=== PATIENT | male | born 1985 | race Two or more races ===

== ENCOUNTER 2020-02-16 14:53 | Inpatient (IN) | payer BC ==
[~2020-02-16] VITALS: Ht 165.1 cm; Wt 68.0 kg
[2020-02-16] MEDS: IV NORMAL SALINE 1000ML BAG 1,000 ML IV SCH (16:03)
--- NOTE | 2020-02-16 16:05 | PDOC2 ---
GI CONSULT Date of Service: DATE: 02/16/20 TIME: 15:54 Reason For Consult: anemia, diarrhea HPI: HPI: 34 y/o male directly admitted by Dr. Barrios. I discussed with him - pt was seen in the office yesterday for diarrhea and abdominal pain and was started on Cipro and Flagyl. Labs were checked - results today noted Hgb in 7s. Hgb was normal last year. The patient does not speak Malay but Consuelo is present to translate. Has h/o acid reflux for at least a year - sometimes more bothersome than other times - untreated except for eating limes. Reports acute onset of worsening reflux, nausea, epigastric and BLQ pain after eating and w/ movement, and diarrhea (brown watery stools 3 x daily w/ small amounts of red blood). Denies precipitating events except for lifting something heavy. Has lost 10 pounds unintentionally in 1 month. Denies fever, chest pain, SOA, dysphagia, vomiting, and melena. No issues w/ anemia, diarrhea, or abdominal pain in the past. No previous EGD or colonoscopy. No GB, liver, pancreas, or PUD history. No NSAIDs. PMH: PMH: denies FH: Family History: No pertinent hx (denies IBD, GI cancers, and ulcers) Social History: ALCOHOL: occassional (15 beers weekly) ROS: GEN: +fatigue HEENT: Denies blurred vision, sore throat CV: Denies chest pain RESP: Denies shortness of air, cough GI: Per HPI : Denies hematuria, dysuria ENDO: +weight loss NEURO: Denies confusion, dizziness MSK: Denies weakness, joint pain/swelling SKIN: Denies jaundice, pruritus Allergies: Coded Allergies: No Known Drug Allergies (Unverified , 02/16/20) PE: GEN: NAD HEENT: Atraumatic, PERRL LUNGS: CTAB HEART: RRR ABD: NABS, S/ND, epigastric discomfort, BLQ discomfort - mostly LLQ EXTREMITY: No edema SKIN: No rashes, no jaundice NEURO/PSYCH: A & O 3 A/P: A/P: Acid reflux, nausea, weight loss, abd pain, diarrhea - onset 8 days ago Anemia - new; noted on outpt labs CRC screen - average risk -- Await labs and CT as ordered by Dr. Barrios. 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 Check anemia parameters and stool studies. Has IV atbx ordered - will review w/ Dr. Boucher. Consider 'scopes later this week - pt agreeable - will review w/ Dr. Boucher. ?STEPHANIE Morrow Feb 16, 2020 16:05
[2020-02-16 16:24] LABS: BASO # 0.2 x10^3/uL (0.0-0.2); BASO % 1 % (0-3); EOS # 1.5 x10^3/uL (0.0-0.7); EOS % 10 % (0-3); HEMATOCRIT 23.2 % (39.0-53.0); HEMOGLOBIN 7.2 g/dL (13.0-17.5); LYMPH # 1.4 x10^3/uL (1.0-4.8); LYMPH % 10 % (24-48); MEAN CORPUSCULAR HEMOGLOBIN 21 pg (25-35); MEAN CORPUSCULAR HGB CONC 31 g/dL (31-37); MEAN CORPUSCULAR VOLUME 66 fL (79-100); MONO # 1.9 x10^3/uL (0.0-1.1); MONO % 13 % (0-9); NEUT # 9.6 x10^3/uL (1.8-7.7); NEUT % 66 % (31-73); PLATELET COUNT 564 x10^3/uL (140-400); RED CELL DISTRIBUTION WIDTH 18.3 % (11.5-14.5); WHITE BLOOD COUNT 14.6 x10^3/uL (4.0-11.0)
[2020-02-16 16:52] LABS: % BANDS 5 % (0-9); % BASOS 1 % (0-3); % EOS 11 % (0-5); % LYMPHS 7 % (24-48); % MONOS 13 % (0-10); % SEGS 63 % (35-66); HYPOCHROMIA MARKED; NUCLEATED RBC 1; PLT ESTIMATE INCREASED (ADEQUATE); POLYCHROMASIA OCCASIONAL
[2020-02-16 16:53] LABS: ANISOCYTOSIS SLIGHT; MICROCYTOSIS MARKED
[2020-02-16 16:54] LABS: OVALOCYTES OCC; SCHISTOCYTES OCC; TEAR DROP CELLS FEW
[2020-02-16 16:55] LABS: POIKILOCYTOSIS SLIGHT
[2020-02-16 17:01] LABS: ALBUMIN 2.9 g/dL (3.4-5.0); ALBUMIN/GLOBULIN RATIO 0.7 (1.0-1.7); CALCIUM 8.5 mg/dL (8.5-10.1); CREATININE 1.2 mg/dL (0.7-1.3); GFR 69.7; POTASSIUM 3.3 mmol/L (3.5-5.1); TOTAL BILIRUBIN 0.3 mg/dL (0.2-1.0); TOTAL PROTEIN 7.1 g/dL (6.4-8.2)
[2020-02-16] MEDS: PANTOPRAZOLE IV PUSH 40 MG VIAL. IVP SCH (17:23)
[2020-02-16] MEDS ORDERED: POTASSIUM CHLORIDE 20 MEQ TABLET.ER. PO ONE (17:30)
--- NOTE | 2020-02-16 17:34 | PDOC ---
Provider Note Date of Service: DATE: 02/16/20 TIME: 17:33 Provider Note Pt seen.H&P dictated.#[id number]. Justifications for Admission Other Justification FADI BOWEN MD Feb 16, 2020 17:34
--- NOTE | 2020-02-16 17:44 | HP ---
ADMIT DATE: 02/16/2020 MEDICAL HISTORY AND PHYSICAL REASON FOR ADMISSION TO THE HOSPITAL: Anemia, abdominal pain and elevated white count, possible infection. HISTORY OF PRESENT ILLNESS: This is a 34-year-old male. The patient was seen yesterday in the office, was complaining of abdominal pain and diarrhea. Had laboratory data drawn, which shows hemoglobin 7.6. His last hemoglobin last year was normal at 14. White count was elevated to 16 and because of severe anemia and abdominal pain, elevated white count, the patient was admitted to the hospital for IV antibiotics and GI workup including CT scan and colonoscopies. PAST MEDICAL HISTORY: Denies any medical problems. He says he has been having abdominal pain, diarrhea, loss weight in 1 month. FAMILY HISTORY: Unremarkable. SOCIAL HISTORY: Occasional alcohol. Beers, 15 beers weekly. MEDICAL HISTORY: None. SURGICAL HISTORY: None. REVIEW OF SYMPTOMS: Feels tired, fatigued and weight loss. Has some blood in the stool once in a while, but not all the time. PHYSICAL EXAMINATION: VITAL SIGNS: Temperature 99, pulse 80, respirations 20, blood pressure 110/70. HEENT: Head is atraumatic. Pupils equal. Oral cavity: No congestion. NECK: Supple. Thyroid not enlarged. JVD not elevated. CHEST: Symmetrical. CARDIOVASCULAR: S1, S2. LUNGS: Clear. ABDOMEN: Tender left lower quadrant to deep palpation. Bowel sounds were present, no mass palpable. EXTERNAL GENITALIA: No Quesada. RECTAL: Deferred. EXTREMITIES: No calf tenderness, no edema. NEUROLOGIC: Moving all extremities. No focal deficits noted. LABORATORY DATA: Shows hemoglobin 7.6, white count 16 in the office. Platelets were normal. CMP was normal. FINAL IMPRESSION: 1. Severe anemia. 2. Abdominal pain with diarrhea, possible colitis. 3. Elevated white count related to possible colitis. PLAN: At this time, he was admitted to the hospital. GI consult. CT scan. Stool cultures. Started on Cipro and Flagyl. Type and cross, transfuse hemoglobin less than 7. FADI BOWEN MD DR: VENECIA/thai JOB#: [id number] / [id number]
[2020-02-16 19:00] VITALS: BP 100/64
[2020-02-16] MEDS ORDERED: IOHEXOL 300 MG/ML 100ML VIAL. IV ONE (19:00)
[2020-02-16] MEDS ORDERED: CONTRAST GIVEN. MC PRN (19:00)
[2020-02-16] MEDS ORDERED: IOHEXOL 240 MG/ML 50ML VIAL. PO ONE (19:00)
--- NOTE | 2020-02-16 21:02 | RAD ---
CT abdomen and pelvis with contrast: Reason for examination: Abdominal pain and anemia. Helical images were obtained through the abdomen and pelvis with intravenous administration of 75 cc Omni 300. Reconstruction was performed in sagittal and coronal planes. Exposure: One or more of the following individualized dose reduction techniques were utilized for this examination: 1. Automated exposure control 2. Adjustment of the mA and/or kV according to patient size 3. Use of iterative reconstruction technique. The lung bases are clear. The heart size is normal with no pericardial effusion. No abnormality seen at the liver, spleen, adrenal glands, gallbladder or pancreas. The abdominal aorta and inferior vena cava show no acute abnormalities. No abnormality seen at the stomach or duodenum. The small intestinal tract shows no abnormal wall thickening, dilatation or obstruction. No abnormality seen at the appendix. The ascending colon and proximal transverse colon however shows wall thickening and some adjacent inflammatory changes are seen around the ascending colon consistent with colitis. The kidneys show no renal masses, renal calculi, hydronephrosis or evidence of obstructive uropathy. There are multiple small nodules consistent with retroperitoneal or mesenteric lymphadenopathy. No abnormality seen at the bladder, prostate gland or seminal vesicles. No free fluid or free air is seen in the abdomen or pelvis. IMPRESSION: Thickened wall with adjacent inflammatory changes involving the ascending and proximal transverse colon consistent with colitis. Multiple small nodules in the retroperitoneal anteriorly consistent with adenopathy. Electronically signed by: Sienna Mckeon MD (02/16/2020 8:59 PM) [facility]
[2020-02-16] MEDS: CIPROFLOXACIN 400MG PREMIX 200 ML IV SCH (21:58)
[2020-02-16 23:44] VITALS: BP 104/60
[2020-02-17] VITALS (14 sets, daily range): BP systolic 100–117; BP diastolic 46–70
[2020-02-17] MEDS: IV NORMAL SALINE 1000ML BAG 1,000 ML IV SCH ×3 (01:19→22:12)
[2020-02-17 07:50] LABS: CALCIUM 7.9 mg/dL (8.5-10.1); CREATININE 1.4 mg/dL (0.7-1.3); GFR 58.4; POTASSIUM 3.6 mmol/L (3.5-5.1)
[2020-02-17 07:57] LABS: BASO # 0.1 x10^3/uL (0.0-0.2); BASO % 0 % (0-3); EOS % 6 % (0-3); HEMATOCRIT 22.1 % (39.0-53.0); LYMPH # 1.2 x10^3/uL (1.0-4.8); LYMPH % 8 % (24-48); MEAN CORPUSCULAR HEMOGLOBIN 20 pg (25-35); MEAN CORPUSCULAR HGB CONC 30 g/dL (31-37); MEAN CORPUSCULAR VOLUME 67 fL (79-100); MONO % 13 % (0-9); NEUT # 11.1 x10^3/uL (1.8-7.7); NEUT % 72 % (31-73); PLATELET COUNT 565 x10^3/uL (140-400); RED BLOOD COUNT 3.31 x10^6/uL (4.30-5.70); RED CELL DISTRIBUTION WIDTH 18.2 % (11.5-14.5); WHITE BLOOD COUNT 15.3 x10^3/uL (4.0-11.0)
--- NOTE | 2020-02-17 08:53 | RAD ---
CT chest without contrast PQRS statement: CT scans at this facility use dose reduction including either automated exposure cont rol, iterative reconstructions, and /or weight based radiation dosing via mA and kV modification when appropriate to reduce radiation dose to as low as reasonably achievable. HISTORY: Anemia. FINDINGS: Heart size is normal. Aorta, pulmonary vessels and esophagus are unremarkable. No adenopath y in the chest. Wall thickening and edema of the transverse colon at the upper abdomen as present on the prior CT abdomen study from one day ago. Trachea and bronchi are unremarkable. There is mild symm etric dependent lower lobe subpleural reticulation and linear densities typical of atelectasis. No pl eural effusions. No pulmonary edema. Bones are unremarkable. IMPRESSION: No acute process in the chest. Minimal dependent lower lobe atelectasis. Colitis again de monstrated Electronically signed by: Mayur Quesada MD (02/17/2020 8:50 AM) [facility]
[2020-02-17 08:54] LABS: HEMOGLOBIN 6.7 g/dL (13.0-17.5)
[2020-02-17] MEDS ORDERED: FLU VACC QS 2020-21(6MOS+)/PF 0.5 ML SYRINGE. VAX IM ONE (09:00)
--- NOTE | 2020-02-17 09:04 | PDOC ---
PROGRESS NOTES Date of Service: DATE: 02/17/20 TIME: 09:04 Subjective Subjective fever 101 yesterday Objective Objective Vital Signs Date Time Temp Pulse Resp B/P (MAP) Pulse Ox O2 Delivery O2 Flow Rate FiO2 02/17/20 07:00 98.4 74 18 106/59 (75) 99 Room Air 98.4 Intake and Output 02/17/20 07:00 Intake Total 200 ml Output Total 3 ml Balance 197 ml Intake Oral 200 ml Output Urine Total 3 ml Physical Exam Abdomen: Normal bowel sounds, Other (tender left lower quadrent) Heart: Regular rate, Normal S1 Extremities: No clubbing General: Alert HEENT: Atraumatic Lungs: Clear to auscultation Neck: Supple Neuro: Normal speech Psych/Mental Status: Mental status NL Skin: No breakdown Assessment Assessment FINAL IMPRESSION: 1. Severe anemia. 2. Abdominal pain with diarrhea, possible colitis. 3. Elevated white count related to possible colitis. PLAN: Hb 6.7, transfuse 2 u PRBC scout wbc and fever due to colitis,on iv antibiotics cipro+flagyl GI and hematology consult appreciated. ct chest -ok ct abd + colitis At this time, he was admitted to the hospital. GI consult. CT scan. Stool cultures. Started on Cipro and Flagyl. Type and cross, transfuse hemoglobin less than 7. Comment Review of Relevant I have reviewed the following items edu (where applicable) has been applied. Labs Laboratory Tests Test 02/16/20 16:05 02/17/20 07:10 White Blood Count 14.6 x10^3/uL (4.0-11.0) 15.3 x10^3/uL (4.0-11.0) Red Blood Count 3.50 x10^6/uL (4.30-5.70) 3.31 x10^6/uL (4.30-5.70) Hemoglobin 7.2 g/dL (13.0-17.5) 6.7 g/dL (13.0-17.5) Hematocrit 23.2 % (39.0-53.0) 22.1 % (39.0-53.0) Mean Corpuscular Volume 66 fL (79-100) 67 fL (79-100) Mean Corpuscular Hemoglobin 21 pg (25-35) 20 pg (25-35) Mean Corpuscular Hemoglobin Concent 31 g/dL (31-37) 30 g/dL (31-37) Red Cell Distribution Width 18.3 % (11.5-14.5) 18.2 % (11.5-14.5) Platelet Count 564 x10^3/uL (140-400) 565 x10^3/uL (140-400) Neutrophils (%) (Auto) 66 % (31-73) 72 % (31-73) Lymphocytes (%) (Auto) 10 % (24-48) 8 % (24-48) Monocytes (%) (Auto) 13 % (0-9) 13 % (0-9) Eosinophils (%) (Auto) 10 % (0-3) 6 % (0-3) Basophils (%) (Auto) 1 % (0-3) 0 % (0-3) Neutrophils # (Auto) 9.6 x10^3/uL (1.8-7.7) 11.1 x10^3/uL (1.8-7.7) Lymphocytes # (Auto) 1.4 x10^3/uL (1.0-4.8) 1.2 x10^3/uL (1.0-4.8) Monocytes # (Auto) 1.9 x10^3/uL (0.0-1.1) 2.0 x10^3/uL (0.0-1.1) Eosinophils # (Auto) 1.5 x10^3/uL (0.0-0.7) 1.0 x10^3/uL (0.0-0.7) Basophils # (Auto) 0.2 x10^3/uL (0.0-0.2) 0.1 x10^3/uL (0.0-0.2) Segmented Neutrophils % 63 % (35-66) Band Neutrophils % 5 % (0-9) Lymphocytes % 7 % (24-48) Monocytes % 13 % (0-10) Eosinophils % 11 % (0-5) Basophils % 1 % (0-3) Nucleated Red Blood Cells 1 Platelet Estimate Increased (ADEQUATE) Large Platelets Occ Giant Platelets Occ Polychromasia Occasional Hypochromasia Marked Poikilocytosis Slight Anisocytosis Slight Microcytosis Marked Tear Drop Cells Few Ovalocytes Occ Schistocytes Occ Sodium Level 133 mmol/L (136-145) 140 mmol/L (136-145) Potassium Level 3.3 mmol/L (3.5-5.1) 3.6 mmol/L (3.5-5.1) Chloride Level 97 mmol/L (98-107) 103 mmol/L (98-107) Carbon Dioxide Level 29 mmol/L (21-32) 30 mmol/L (21-32) Anion Gap 7 (6-14) 7 (6-14) Blood Urea Nitrogen 7 mg/dL (8-26) 6 mg/dL (8-26) Creatinine 1.2 mg/dL (0.7-1.3) 1.4 mg/dL (0.7-1.3) Estimated GFR (Cockcroft-Gault) 69.7 58.4 BUN/Creatinine Ratio 6 (6-20) Glucose Level 120 mg/dL (70-99) 109 mg/dL (70-99) Calcium Level 8.5 mg/dL (8.5-10.1) 7.9 mg/dL (8.5-10.1) Iron Level 11 ug/dL (65-175) Total Iron Binding Capacity 301 ug/dL (250-450) Iron Saturation 4 % (15-34) Total Bilirubin 0.3 mg/dL (0.2-1.0) Aspartate Amino Transf (AST/SGOT) 10 U/L (15-37) Alanine Aminotransferase (ALT/SGPT) 16 U/L (16-63) Alkaline Phosphatase 103 U/L (46-116) Total Protein 7.1 g/dL (6.4-8.2) Albumin 2.9 g/dL (3.4-5.0) Albumin/Globulin Ratio 0.7 (1.0-1.7) Vitamin B12 Level 850 pg/mL (247-911) Medications Current Medications Ciprofloxacin/ Dextrose 200 ml @ 200 mls/hr Q12HR IV Last administered on 02/16/20at 21:58; Start 02/16/20 at 21:00 Influenza Virus Vaccine Quadrival (Fluzone Quad [id number] Syringe) 0.5 ml ONCE ONCE VAX IM ; Start 02/17/20 at 09:00; Stop 02/17/20 at 09:01; Status DC Info (CONTRAST GIVEN -- Rx MONITORING) 1 each PRN DAILY PRN MC SEE COMMENTS; Start 02/16/20 at 19:00; Stop 02/18/20 at 18:59 Iohexol (Omnipaque 240 Mg/ml) 30 ml 1X ONCE PO Last administered on 02/16/20at 19:00; Start 02/16/20 at 19:00; Stop 02/16/20 at 19:01; Status DC Iohexol (Omnipaque 300 Mg/ml) 75 ml 1X ONCE IV Last administered on 02/16/20at 19:00; Start 02/16/20 at 19:00; Stop 02/16/20 at 19:01; Status DC Metronidazole 100 ml @ 100 mls/hr Q12HR IV Last administered on 02/16/20at 20:55; Start 02/16/20 at 21:00 Pantoprazole Sodium (PROTONIX VIAL for IV PUSH) 40 mg DAILYAC IVP Last administ ered on 02/16/20at 17:23; Start 02/16/20 at 16:15 Potassium Chloride (Klor-Con) 40 meq 1X ONCE PO Last administered on 02/16/20at 20:55; Start 02/16/20 at 17:30; Stop 02/16/20 at 17:40; Status DC Sodium Chloride 1,000 ml @ 100 mls/hr Q10H IV Last administered on 02/17/20at 01:19; Start 02/16/20 at 15:30 Vitals/I & O Vital Sign - Last 24 Hours 02/16/20 02/16/20 02/17/20 02/17/20 19:00 23:44 03:00 07:00 Temp 101.4 98.4 99.3 98.4 101.4 98.4 99.3 98.4 Pulse 106 103 102 74 Resp 18 18 18 18 B/P (MAP) 100/64 (76) 104/60 (75) 111/63 (79) 106/59 (75) Pulse Ox 98 99 100 99 O2 Delivery Room Air Intake and Output 02/16/20 02/16/20 02/17/20 15:00 23:00 07:00 Intake Total 200 ml Output Total 2 ml 1 ml Balance 198 ml -1 ml Justifications for Admission Other Justification FADI BOWEN MD Feb 17, 2020 09:04
[2020-02-17] MEDS: PANTOPRAZOLE IV PUSH 40 MG VIAL. IVP SCH (09:31)
--- NOTE | 2020-02-17 09:54 | PDOC ---
Date of Service: DATE: 02/17/20 TIME: 09:48 Subjective: Subjective: Feels better. Less pain, no bleeding. Does have diarrhea. Objective: Vital Signs: Vital Signs Date Time Temp Pulse Resp B/P (MAP) Pulse Ox O2 Delivery O2 Flow Rate FiO2 02/17/20 07:00 98.4 74 18 106/59 (75) 99 Room Air 98.4 Labs: Laboratory Tests Test 02/16/20 16:05 02/17/20 07:10 White Blood Count 14.6 x10^3/uL 15.3 x10^3/uL Red Blood Count 3.50 x10^6/uL 3.31 x10^6/uL Hemoglobin 7.2 g/dL 6.7 g/dL Hematocrit 23.2 % 22.1 % Mean Corpuscular Volume 66 fL 67 fL Mean Corpuscular Hemoglobin 21 pg 20 pg Mean Corpuscular Hemoglobin Concent 31 g/dL 30 g/dL Red Cell Distribution Width 18.3 % 18.2 % Platelet Count 564 x10^3/uL 565 x10^3/uL Neutrophils (%) (Auto) 66 % 72 % Lymphocytes (%) (Auto) 10 % 8 % Monocytes (%) (Auto) 13 % 13 % Eosinophils (%) (Auto) 10 % 6 % Basophils (%) (Auto) 1 % 0 % Neutrophils # (Auto) 9.6 x10^3/uL 11.1 x10^3/uL Lymphocytes # (Auto) 1.4 x10^3/uL 1.2 x10^3/uL Monocytes # (Auto) 1.9 x10^3/uL 2.0 x10^3/uL Eosinophils # (Auto) 1.5 x10^3/uL 1.0 x10^3/uL Basophils # (Auto) 0.2 x10^3/uL 0.1 x10^3/uL Segmented Neutrophils % 63 % Band Neutrophils % 5 % Lymphocytes % 7 % Monocytes % 13 % Eosinophils % 11 % Basophils % 1 % Nucleated Red Blood Cells 1 Platelet Estimate Increased Large Platelets Occ Giant Platelets Occ Polychromasia Occasional Hypochromasia Marked Poikilocytosis Slight Anisocytosis Slight Microcytosis Marked Tear Drop Cells Few Ovalocytes Occ Schistocytes Occ Sodium Level 133 mmol/L 140 mmol/L Potassium Level 3.3 mmol/L 3.6 mmol/L Chloride Level 97 mmol/L 103 mmol/L Carbon Dioxide Level 29 mmol/L 30 mmol/L Anion Gap 7 7 Blood Urea Nitrogen 7 mg/dL 6 mg/dL Creatinine 1.2 mg/dL 1.4 mg/dL Estimated GFR (Cockcroft-Gault) 69.7 58.4 BUN/Creatinine Ratio 6 Glucose Level 120 mg/dL 109 mg/dL Calcium Level 8.5 mg/dL 7.9 mg/dL Iron Level 11 ug/dL Total Iron Binding Capacity 301 ug/dL Iron Saturation 4 % Total Bilirubin 0.3 mg/dL Aspartate Amino Transf (AST/SGOT) 10 U/L Alanine Aminotransferase (ALT/SGPT) 16 U/L Alkaline Phosphatase 103 U/L Total Protein 7.1 g/dL Albumin 2.9 g/dL Albumin/Globulin Ratio 0.7 Vitamin B12 Level 850 pg/mL Imaging: Chest CT 02/16 IMPRESSION: No acute process in the chest. Minimal dependent lower lobe atelectasis. Colitis again demonstrated. CT A/P 02/15 IMPRESSION: Thickened wall with adjacent inflammatory changes involving the ascending and proximal transverse colon consistent with colitis.Multiple small nodules in the retroperitoneal anteriorly consistent with adenopathy. PE: GEN: NAD - getting unhooked from IV - in WC to go for chest CT LUNGS: CTAB HEART: RRR ABD: non-distended NEURO/PSYCH: A & O 3 A/P: Acid reflux, nausea, weight loss, abd pain, diarrhea - onset 8 days ago Fever, leukocytosis, CAMILO, thrombocytosis, MAURICIO Abnormal CT - thickening/inflammation in ascending and proximal transverse colon , retroperitoneal adenopathy -- Okay for clears. Continue PPI and atbx. Will order transfusion. Await stool studies and hematology eval. Will return later w/ Dr. Boucher. Justicifation of Admission Dx: Justifications for Admission: Justification of Admission Dx: Yes STEPHANIE HARTMAN Feb 17, 2020 09:54
--- NOTE | 2020-02-17 10:19 | NUR ---
SW following. Discussed with RN, pt from home , room air, clear liquid diet. Pt getting blood today for critical hgn. Pt on IV abx. Per GI, consider scopes later this week. SW will continue to follow.
[2020-02-17] MEDS: CIPROFLOXACIN 400MG PREMIX 200 ML IV SCH ×2 (11:09→22:11)
--- NOTE | 2020-02-17 14:00 | PDOC2 ---
CONSULT Date of Consult Date of Consult DATE: 02/17/20 TIME: 13:48 Reason for Consult Reason for Consult: Anemia Referring Physician Referring Physician: Dr. Barrios Identification/Chief Complaint Chief Complaint Shortness of breath and diarrhea Source Source: Chart review, Patient History of Present Illness Reason for Visit: Mayank King is a 34-year-old male who has been admitted to the hospital after presenting with diarrhea. Mayank is Sami-speaking and history was obtained using a telephone mercury washer today. Mayank reports having multiple episodes of watery diarrhea (5-6 daily) for the past week. He notes associated abdominal discomfort, nausea and occasional vomiting. He denies hematemesis. He reports "occasional" blood in his stool. He denies melena. He denies a prior history of similar symptoms. He has not had blood work in the past. He has not had any recent changes in appetite or weight. Mayank was evaluated in the ER with labs which showed microcytic anemia, thrombocytosis and neutrophilic leukocytosis with eosinophilia and monocytosis. The scans of the chest, abdomen and pelvis were obtained and show colitis but no additional abnormal findings. He denies recent travel outside the [facility]. Social History ALCOHOL: occassional (15 beers weekly) Current Medications Current Medications Current Medications Sodium Chloride 1,000 ml @ 100 mls/hr Q10H IV Last administered on 02/17/20at 11:10; Start 02/16/20 at 15:30 Ciprofloxacin/ Dextrose 200 ml @ 200 mls/hr Q12HR IV Last administered on 02/17/20at 11:09; Start 02/16/20 at 21:00 Metronidazole 100 ml @ 100 mls/hr Q12HR IV Last administered on 02/17/20at 09:31; Start 02/16/20 at 21:00 Pantoprazole Sodium (PROTONIX VIAL for IV PUSH) 40 mg DAILYAC IVP Last administered on 02/17/20 09:31; Start 02/16/20 at 16:15 Potassium Chloride (Klor-Con) 40 meq 1X ONCE PO Last administered on 02/16/20at 20:55; Start 02/16/20 at 17:30; Stop 02/16/20 at 17:40; Status DC Iohexol (Omnipaque 240 Mg/ml) 30 ml 1X ONCE PO Last administered on 02/16/20at 19:00; Start 02/16/20 at 19:00; Stop 02/16/20 at 19:01; Status DC Iohexol (Omnipaque 300 Mg/ml) 75 ml 1X ONCE IV Last administered on 02/16/20at 19:00; Start 02/16/20 at 19:00; Stop 02/16/20 at 19:01; Status DC Info (CONTRAST GIVEN -- Rx MONITORING) 1 each PRN DAILY PRN MC SEE COMMENTS; Start 02/16/20 at 19:00; Stop 02/18/20 at 18:59 Influenza Virus Vaccine Quadrival (Fluzone Quad Syringe) 0.5 ml ONCE ONCE VAX IM Last administered on 02/17/20at 09:32; Start 02/17/20 at 09:00; Stop 02/17/20 at 09:01; Status DC Allergies Allergies: Coded Allergies: No Known Drug Allergies (Unverified , 02/16/20) ROS General: No: Chills, Night Sweats PSYCHOLOGICAL ROS: No: Anxiety, Behavioral Disorder Eyes: No Blurry vision, No Decreased vision HEENT: No: Heacaches, Visual Changes ALLERGY AND IMMUNOLOGY: No: Nasal Congestion, Post Nasal Drip Hematological and Lymphatic: No: Brusing, Night Sweats ENDOCRINE: No: Malaise/lethargy, Mood Swings Respiratory: YES: Shortness of breath; No: Cough, Hemoptysis Cardiovascular: No Chest Pain, No Palpitations Gastrointestinal: Yes Nausea, Yes Vomiting, Yes Abdominal Pain, Yes Diarrhea, Yes Hematochezia; No Melena Genitourinary: No Dysuria, No Flank Pain Musculoskeletal: No Gait Disturbance, No Joint Pain Neurological: No Behavorial Changes Skin: No Dry Skin, No Eczema Physical Exam General: Alert, Oriented X3 HEENT: Atraumatic Lungs: Clear to auscultation Heart: Regular rate Abdomen: Normal bowel sounds, Soft Extremities: No cyanosis Skin: No rashes Neuro: Normal gait, Normal speech Psych/Mental Status: Mental status NL MUSCULOSKELETAL: No joint tenderness Vitals VITALS Vital Signs Date Time Temp Pulse Resp B/P (MAP) Pulse Ox O2 Delivery O2 Flow Rate FiO2 02/17/20 11:00 98.5 80 18 100/46 (64) 99 Room Air 98.5 Labs Labs Laboratory Tests Test 02/16/20 16:05 02/17/20 07:10 White Blood Count 14.6 x10^3/uL (4.0-11.0) 15.3 x10^3/uL (4.0-11.0) Red Blood Count 3.50 x10^6/uL (4.30-5.70) 3.31 x10^6/uL (4.30-5.70) Hemoglobin 7.2 g/dL (13.0-17.5) 6.7 g/dL (13.0-17.5) Hematocrit 23.2 % (39.0-53.0) 22.1 % (39.0-53.0) Mean Corpuscular Volume 66 fL (79-100) 67 fL (79-100) Mean Corpuscular Hemoglobin 21 pg (25-35) 20 pg (25-35) Mean Corpuscular Hemoglobin Concent 31 g/dL (31-37) 30 g/dL (31-37) Red Cell Distribution Width 18.3 % (11.5-14.5) 18.2 % (11.5-14.5) Platelet Count 564 x10^3/uL (140-400) 565 x10^3/uL (140-400) Neutrophils (%) (Auto) 66 % (31-73) 72 % (31-73) Lymphocytes (%) (Auto) 10 % (24-48) 8 % (24-48) Monocytes (%) (Auto) 13 % (0-9) 13 % (0-9) Eosinophils (%) (Auto) 10 % (0-3) 6 % (0-3) Basophils (%) (Auto) 1 % (0-3) 0 % (0-3) Neutrophils # (Auto) 9.6 x10^3/uL (1.8-7.7) 11.1 x10^3/uL (1.8-7.7) Lymphocytes # (Auto) 1.4 x10^3/uL (1.0-4.8) 1.2 x10^3/uL (1.0-4.8) Monocytes # (Auto) 1.9 x10^3/uL (0.0-1.1) 2.0 x10^3/uL (0.0-1.1) Eosinophils # (Auto) 1.5 x10^3/uL (0.0-0.7) 1.0 x10^3/uL (0.0-0.7) Basophils # (Auto) 0.2 x10^3/uL (0.0-0.2) 0.1 x10^3/uL (0.0-0.2) Segmented Neutrophils % 63 % (35-66) Band Neutrophils % 5 % (0-9) Lymphocytes % 7 % (24-48) Monocytes % 13 % (0-10) Eosinophils % 11 % (0-5) Basophils % 1 % (0-3) Nucleated Red Blood Cells 1 Platelet Estimate Increased (ADEQUATE) Large Platelets Occ Giant Platelets Occ Polychromasia Occasional Hypochromasia Marked Poikilocytosis Slight Anisocytosis Slight Microcytosis Marked Tear Drop Cells Few Ovalocytes Occ Schistocytes Occ Sodium Level 133 mmol/L (136-145) 140 mmol/L (136-145) Potassium Level 3.3 mmol/L (3.5-5.1) 3.6 mmol/L (3.5-5.1) Chloride Level 97 mmol/L (98-107) 103 mmol/L (98-107) Carbon Dioxide Level 29 mmol/L (21-32) 30 mmol/L (21-32) Anion Gap 7 (6-14) 7 (6-14) Blood Urea Nitrogen 7 mg/dL (8-26) 6 mg/dL (8-26) Creatinine 1.2 mg/dL (0.7-1.3) 1.4 mg/dL (0.7-1.3) Estimated GFR (Cockcroft-Gault) 69.7 58.4 BUN/Creatinine Ratio 6 (6-20) Glucose Level 120 mg/dL (70-99) 109 mg/dL (70-99) Calcium Level 8.5 mg/dL (8.5-10.1) 7.9 mg/dL (8.5-10.1) Iron Level 11 ug/dL (65-175) Total Iron Binding Capacity 301 ug/dL (250-450) Iron Saturation 4 % (15-34) Total Bilirubin 0.3 mg/dL (0.2-1.0) Aspartate Amino Transf (AST/SGOT) 10 U/L (15-37) Alanine Aminotransferase (ALT/SGPT) 16 U/L (16-63) Alkaline Phosphatase 103 U/L (46-116) Total Protein 7.1 g/dL (6.4-8.2) Albumin 2.9 g/dL (3.4-5.0) Albumin/Globulin Ratio 0.7 (1.0-1.7) Vitamin B12 Level 850 pg/mL (247-911) Laboratory Tests Test 02/16/20 16:05 02/17/20 07:10 White Blood Count 14.6 x10^3/uL (4.0-11.0) 15.3 x10^3/uL (4.0-11.0) Red Blood Count 3.50 x10^6/uL (4.30-5.70) 3.31 x10^6/uL (4.30-5.70) Hemoglobin 7.2 g/dL (13.0-17.5) 6.7 g/dL (13.0-17.5) Hematocrit 23.2 % (39.0-53.0) 22.1 % (39.0-53.0) Mean Corpuscular Volume 66 fL (79-100) 67 fL (79-100) Mean Corpuscular Hemoglobin 21 pg (25-35) 20 pg (25-35) Mean Corpuscular Hemoglobin Concent 31 g/dL (31-37) 30 g/dL (31-37) Red Cell Distribution Width 18.3 % (11.5-14.5) 18.2 % (11.5-14.5) Platelet Count 564 x10^3/uL (140-400) 565 x10^3/uL (140-400) Neutrophils (%) (Auto) 66 % (31-73) 72 % (31-73) Lymphocytes (%) (Auto) 10 % (24-48) 8 % (24-48) Monocytes (%) (Auto) 13 % (0-9) 13 % (0-9) Eosinophils (%) (Auto) 10 % (0-3) 6 % (0-3) Basophils (%) (Auto) 1 % (0-3) 0 % (0-3) Neutrophils # (Auto) 9.6 x10^3/uL (1.8-7.7) 11.1 x10^3/uL (1.8-7.7) Lymphocytes # (Auto) 1.4 x10^3/uL (1.0-4.8) 1.2 x10^3/uL (1.0-4.8) Monocytes # (Auto) 1.9 x10^3/uL (0.0-1.1) 2.0 x10^3/uL (0.0-1.1) Eosinophils # (Auto) 1.5 x10^3/uL (0.0-0.7) 1.0 x10^3/uL (0.0-0.7) Basophils # (Auto) 0.2 x10^3/uL (0.0-0.2) 0.1 x10^3/uL (0.0-0.2) Segmented Neutrophils % 63 % (35-66) Band Neutrophils % 5 % (0-9) Lymphocytes % 7 % (24-48) Monocytes % 13 % (0-10) Eosinophils % 11 % (0-5) Basophils % 1 % (0-3) Nucleated Red Blood Cells 1 Platelet Estimate Increased (ADEQUATE) Large Platelets Occ Giant Platelets Occ Polychromasia Occasional Hypochromasia Marked Poikilocytosis Slight Anisocytosis Slight Microcytosis Marked Tear Drop Cells Few Ovalocytes Occ Schistocytes Occ Sodium Level 133 mmol/L (136-145) 140 mmol/L (136-145) Potassium Level 3.3 mmol/L (3.5-5.1) 3.6 mmol/L (3.5-5.1) Chloride Level 97 mmol/L (98-107) 103 mmol/L (98-107) Carbon Dioxide Level 29 mmol/L (21-32) 30 mmol/L (21-32) Anion Gap 7 (6-14) 7 (6-14) Blood Urea Nitrogen 7 mg/dL (8-26) 6 mg/dL (8-26) Creatinine 1.2 mg/dL (0.7-1.3) 1.4 mg/dL (0.7-1.3) Estimated GFR (Cockcroft-Gault) 69.7 58.4 BUN/Creatinine Ratio 6 (6-20) Glucose Level 120 mg/dL (70-99) 109 mg/dL (70-99) Calcium Level 8.5 mg/dL (8.5-10.1) 7.9 mg/dL (8.5-10.1) Iron Level 11 ug/dL (65-175) Total Iron Binding Capacity 301 ug/dL (250-450) Iron Saturation 4 % (15-34) Total Bilirubin 0.3 mg/dL (0.2-1.0) Aspartate Amino Transf (AST/SGOT) 10 U/L (15-37) Alanine Aminotransferase (ALT/SGPT) 16 U/L (16-63) Alkaline Phosphatase 103 U/L (46-116) Total Protein 7.1 g/dL (6.4-8.2) Albumin 2.9 g/dL (3.4-5.0) Albumin/Globulin Ratio 0.7 (1.0-1.7) Vitamin B12 Level 850 pg/mL (247-911) Assessment/Plan Assessment/Plan Assessment: Iron deficiency anemia Reactive thrombocytosis Leukocytosis, with neutrophilia and eosinophilia Colitis Hyponatremia Hypokalemia Recommendations: -We will add ferritin and reticulocyte count. Reviewed results of iron panel and B12 suggestive of iron deficiency -Given lack of clinically evident bleeding that could explain extent of anemia, would agree with GI evaluation. Discussed with GI and anticipate EGD /colonoscopy on 02/18/2020 -Due to eosinophilia, colitis and iron deficiency anemia of unclear etiology, would recommend stool evaluation for ova and parasites, specifically strongyloidiasis -Can plan on starting iron supplementation by mouth or alternatively IV depending on results of ongoing work-up -Transfuse as needed to maintain hemoglobin greater than 7 -Rest per Dr. Denis Ivory MD Medical Oncology/Hematology Ph: [phone] JESSICA IVORY MD Feb 17, 2020 14:00
[2020-02-17] MEDS ORDERED: POLYETHYLENE GLYCOL 3350 BTL 238 GM POWDER PO ONE (15:00)
[2020-02-17] MEDS ORDERED: MAGNESIUM CITRATE 296 ML SOLUTION. PO ONE (15:00)
[2020-02-17] MEDS ORDERED: BISACODYL 5 MG TABLET.DR. PO ONE (15:00)
[2020-02-18 03:40] VITALS: BP 109/69
[2020-02-18] MEDS ORDERED: IV RINGERS,LACTATED 1000ML 1,000 ML IV ONE (06:15)
[2020-02-18 07:00] VITALS: BP 109/72
[2020-02-18] MEDS ORDERED: IV RINGERS,LACTATED 1000ML 1,000 ML IV SCH (07:00)
[2020-02-18] MEDS: IV NORMAL SALINE 1000ML BAG 1,000 ML IV SCH ×2 (07:30→16:36)
--- NOTE | 2020-02-18 08:45 | PDOC ---
PROGRESS NOTES Date of Service: DATE: 02/18/20 TIME: 08:45 Subjective Subjective going for egd and colonoscopy today Objective Objective Vital Signs Date Time Temp Pulse Resp B/P (MAP) Pulse Ox O2 Delivery O2 Flow Rate FiO2 02/18/20 07:00 98.9 86 18 109/72 (84) 97 Room Air 98.9 Intake and Output 02/18/20 07:00 Intake Total 1354 ml Output Total 3 ml Balance 1351 ml Intake Oral 260 ml Blood Product IV Normal Saline Flush 1094 ml Output Urine Total 3 ml Physical Exam Abdomen: Normal bowel sounds, Other (tender left lower quadrent) Heart: Regular rate, Normal S1 Extremities: No clubbing General: Alert HEENT: Atraumatic Lungs: Clear to auscultation MUSCULOSKELETAL: No joint tenderness Neck: Supple Neuro: Normal speech Psych/Mental Status: Mental status NL Skin: No breakdown Assessment Assessment FINAL IMPRESSION: 1. Severe anemia. 2. Abdominal pain with diarrhea, possible colitis. 3. Elevated white count related to possible colitis. PLAN: EGD and colonscopy today Hb9.3 after transfuse 2 u PRBC scout wbc and fever due to colitis,on iv antibiotics cipro+flagyl GI and hematology consult appreciated. ct chest -ok ct abd + colitis At this time, he was admitted to the hospital. GI consult. CT scan. Stool cultures. Started on Cipro and Flagyl. Type and cross, transfuse hemoglobin less than 7. Comment Review of Relevant I have reviewed the following items edu (where applicable) has been applied. Labs Laboratory Tests Test 02/17/20 17:01 SARS-CoV-2 Antigen (Rapid) Negative (NEGATIVE) Microbiology 02/16/20 Blood Culture - Preliminary, Resulted NO GROWTH AFTER 1 DAY Medications Current Medications Bisacodyl (Dulcolax Tab) 10 mg 1X ONCE PO Last administered on 02/17/20at 16:21; Start 02/17/20 at 15:00; Stop 02/17/20 at 15:01; Status DC Influenza Virus Vaccine Quadrival (Fluzone Quad Syringe) 0.5 ml ONCE ONCE VAX IM Last administered on 02/17/20at 09:32; Start 02/17/20 at 09:00; Stop 02/17/20 at 09:01; Status DC Magnesium Citrate (Citroma) 296 ml 1X ONCE PO Last administered on 02/17/20at 16:21; Start 02/17/20 at 15:00; Stop 02/17/20 at 15:01; Status DC Polyethylene Glycol (miraLAX Powder BULK BOTTLE) 238 gm 1X ONCE PO Last administered on 02/17/20at 16:21; Start 02/17/20 at 15:00; Stop 02/17/20 at 15:01; Status DC Ringer's Solution 1,000 ml @ 50 mls/hr Q20H IV ; Start 02/18/20 at 07:00; Stop 02/18/20 at 18:59 Ringer's Solution 1,000 ml @ 75 mls/hr 1X ONCE IV ; Start 02/18/20 at 06:15; Stop 02/18/20 at 19:34 Vitals/I & O Vital Sign - Last 24 Hours 02/17/20 02/17/20 02/17/20 02/17/20 11:00 14:15 15:00 15:15 Temp 98.5 98.2 98.2 98.1 98.5 98.2 98.2 98.1 Pulse 80 91 89 89 Resp 18 16 18 17 B/P (MAP) 100/46 (64) 104/58 106/65 (79) 105/59 Pulse Ox 99 100 O2 Delivery Room Air Room Air 02/17/20 02/17/20 02/17/20 02/17/20 16:15 17:53 18:47 19:00 Temp 98.4 98.9 99.4 98.7 98.4 98.9 99.4 98.7 Pulse 91 103 98 102 Resp 18 16 18 B/P (MAP) 107/64 110/65 117/69 108/66 (80) Pulse Ox 98 O2 Delivery Room Air 02/17/20 02/17/20 02/17/20 02/17/20 19:48 20:00 20:48 21:48 Temp 99.2 98.8 98.7 99.2 98.8 98.7 Pulse 95 105 94 Resp 18 20 B/P (MAP) 104/52 115/69 114/70 O2 Delivery Room Air 02/17/20 02/18/20 02/18/20 23:00 03:40 07:00 Temp 98.6 98.8 98.9 98.6 98.8 98.9 Pulse 94 85 86 Resp 20 18 18 B/P (MAP) 114/70 (85) 109/69 (82) 109/72 (84) Pulse Ox 98 97 97 O2 Delivery Room Air Room Air Room Air Intake and Output 02/17/20 02/17/20 02/18/20 15:00 23:00 07:00 Intake Total 390 ml 964 ml Output Total 1 ml 2 ml Balance 390 ml 963 ml -2 ml Justifications for Admission Other Justification FADI BOWEN MD Feb 18, 2020 08:45
[2020-02-18] MEDS: PANTOPRAZOLE IV PUSH 40 MG VIAL. IVP SCH (09:04)
[2020-02-18 10:05] LABS: BASO # 0.1 x10^3/uL (0.0-0.2); BASO % 1 % (0-3); EOS # 1.5 x10^3/uL (0.0-0.7); EOS % 11 % (0-3); HEMATOCRIT 30.3 % (39.0-53.0); LYMPH # 1.3 x10^3/uL (1.0-4.8); LYMPH % 9 % (24-48); MEAN CORPUSCULAR HEMOGLOBIN 23 pg (25-35); MEAN CORPUSCULAR HGB CONC 32 g/dL (31-37); MONO # 1.6 x10^3/uL (0.0-1.1); MONO % 12 % (0-9); NEUT # 9.4 x10^3/uL (1.8-7.7); NEUT % 68 % (31-73); PLATELET COUNT 500 x10^3/uL (140-400); RED BLOOD COUNT 4.25 x10^6/uL (4.30-5.70); RED CELL DISTRIBUTION WIDTH 22.1 % (11.5-14.5); WHITE BLOOD COUNT 13.9 x10^3/uL (4.0-11.0)
[2020-02-18 10:13] LABS: HEMOGLOBIN 9.7 g/dL (13.0-17.5); MEAN CORPUSCULAR VOLUME 71 fL (79-100)
[2020-02-18 10:37] LABS: CALCIUM 7.9 mg/dL (8.5-10.1); CREATININE 1.3 mg/dL (0.7-1.3); GFR 63.6; POTASSIUM 3.7 mmol/L (3.5-5.1)
[2020-02-18] MEDS: CIPROFLOXACIN 400MG PREMIX 200 ML IV SCH ×2 (10:38→22:43)
[2020-02-18 11:00] VITALS: BP 103/62
--- NOTE | 2020-02-18 11:16 | NUR ---
SW following. Discussed with RN, pt from home, room air, NPO. Pt having an EGD and colonoscopy today. RN anticipates pt may be able to discharge home after procedures if everything is okay. RN advised no SW needs at this time. SW will continue to follow.
[2020-02-18] MEDS ORDERED: PROPOFOL 10 MG/ML (20ML) VIAL. IV ONE ×2 (13:47→14:38)
[2020-02-18] MEDS ORDERED: LIDOCAINE 2% PF 5 ML VIAL. ONE (13:47)
--- NOTE | 2020-02-18 14:39 | PDOC4 ---
PROCEDURE Procedure EGD/biopsies, Colonoscopy/biopsies Indication: Diarrhea, anemia, rectal bleeding, abnormal CT, Dyspepsia Meds: per anesthesia Findings: E--Normal G--Normal, antral biopsies. D--Normal to second portion, biopsies. TIMBO--blood on examining finger --'Scope advanced to TI. Ileum normal. Erythema, friability, edema throughout with unusually prominent lymphoid follicles. Biopsies from cecum/ascending, transverse and rectum. Retroflex otherwise normal. Raquel. well. IMP: Normal EGD. Pancolitis. Can see eosinophilia in UC, but remained concerned re: parasitic disease. REC: Stay at [facility] for now. Await path. 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 Stools for O and P. Consider empiric doses of ivermectin; will do no harm and cover worm. SARAH DOHERTY MD Feb 18, 2020 14:39
[2020-02-18] MEDS ORDERED: IRON SUCROSE COMPLEX 500 MG in IV NORMAL SALINE 250ML 250 ML IV ONE (15:15)
[2020-02-18] MEDS: MESALAMINE 400 MG CAP.DRTAB. PO SCH ×2 (16:31→21:22)
[2020-02-18 19:00] VITALS: BP 102/63
[2020-02-18 22:49] VITALS: BP 110/64
[2020-02-19] MEDS: IV NORMAL SALINE 1000ML BAG 1,000 ML IV SCH ×3 (01:22→21:41)
[2020-02-19 03:00] VITALS: BP 115/68
[2020-02-19 07:00] VITALS: BP 101/59
[2020-02-19] MEDS: PANTOPRAZOLE IV PUSH 40 MG VIAL. IVP SCH (07:26)
[2020-02-19] MEDS: MESALAMINE 400 MG CAP.DRTAB. PO SCH ×4 (08:27→20:41)
[2020-02-19] MEDS ORDERED: IVERMECTIN 3 MG TABLET PO SCH ×2 (10:45→14:28)
[2020-02-19] MEDS: CIPROFLOXACIN 400MG PREMIX 200 ML IV SCH ×2 (10:52→21:41)
--- NOTE | 2020-02-19 10:55 | PDOC ---
IM PROGRESS NOTES- Subjective Subjective No complaints of nausea, vomiting, diarrhea. Tolerating clear liquids. Objective Vitals/I&O Vital Signs Date Time Temp Pulse Resp B/P (MAP) Pulse Ox O2 Delivery O2 Flow Rate FiO2 02/19/20 07:00 98.8 83 16 101/59 (73) 98 Room Air 98.8 02/18/20 14:37 3 Physical Exam Physical Exam General appearance - alert,well appearing, and in no distress and oriented to person, place, and time Mental Status - alert, oriented to person, place, and time, affect appropriate to mood Head - normal Chest - clear to auscultation, no wheezes, rales or rhonchi, symmetric air entry Heart - S1 and S2 normal Abdomen - soft, non tender, non distended, Neurological - alert and oriented Extremities - no pedal edema Skin - warm and dry Meds Current Medications Medications (Trade) Dose Ordered Sig/Charmaine Route PRN Reason Start Time Stop Time Status Last Admin Dose Admin Mesalamine (Delzicol) 800 mg [id number] PO 02/18/20 17:00 02/19/20 08:27 Iron Sucrose 500 mg/Sodium Chloride 275 ml @ 78.571 mls/ hr 1X ONCE IV 02/18/20 15:15 02/18/20 18:44 DC 02/18/20 16:31 Assessment Assessment FINAL IMPRESSION: 1. Severe anemia. 2. Abdominal pain with diarrhea, possible colitis. 3. Elevated white count related to possible colitis. PLAN: EGD and colonscopy today Hb9.3 after transfuse 2 u PRBC scout wbc and fever due to colitis,on iv antibiotics cipro+flagyl GI and hematology consult appreciated. ct chest -ok ct abd + colitis At this time, he was admitted to the hospital. GI consult. CT scan. Stool cultures. Started on Cipro and Flagyl. Type and cross, transfuse hemoglobin less than 7. EGD normal Colonoscopy- pancolitis There is a strong suspicion of parasite infestation such as strongyloidosis because of eosinophilia and other symptoms.. Dr. Boucher has recommended ivermectin. I have ordered ivermectin 12 mg daily for 2 days. Discussed with the pharmacist. Condition and treatment and options discussed with the patient and the family. He is agreeable with the plan of care. Plan Plan For more details regarding further plans, please refer to the orders. Justifications for Admission Other Justification MILLER LOZA MD Feb 19, 2020 10:55
[2020-02-19 11:00] VITALS: BP 106/65
--- NOTE | 2020-02-19 13:21 | PDOC ---
G I PROGRESS NOTE Subjective Few complaints. Says (Faheem ) doing OK. Objective Note plans to give ivermectin. Physical Exam Lungs clear. RRR Abdomen soft, not tender. Review of Relevant I have reviewed the following items edu (where applicable) has been applied. Labs Laboratory Tests Test 02/17/20 17:01 02/18/20 09:07 02/18/20 09:15 SARS-CoV-2 Antigen (Rapid) Negative (NEGATIVE) Ferritin 28 ng/mL (26-388) White Blood Count 13.9 x10^3/uL (4.0-11.0) Red Blood Count 4.25 x10^6/uL (4.30-5.70) Hemoglobin 9.7 g/dL (13.0-17.5) Hematocrit 30.3 % (39.0-53.0) Mean Corpuscular Volume 71 fL (79-100) Mean Corpuscular Hemoglobin 23 pg (25-35) Mean Corpuscular Hemoglobin Concent 32 g/dL (31-37) Red Cell Distribution Width 22.1 % (11.5-14.5) Platelet Count 500 x10^3/uL (140-400) Neutrophils (%) (Auto) 68 % (31-73) Lymphocytes (%) (Auto) 9 % (24-48) Monocytes (%) (Auto) 12 % (0-9) Eosinophils (%) (Auto) 11 % (0-3) Basophils (%) (Auto) 1 % (0-3) Neutrophils # (Auto) 9.4 x10^3/uL (1.8-7.7) Lymphocytes # (Auto) 1.3 x10^3/uL (1.0-4.8) Monocytes # (Auto) 1.6 x10^3/uL (0.0-1.1) Eosinophils # (Auto) 1.5 x10^3/uL (0.0-0.7) Basophils # (Auto) 0.1 x10^3/uL (0.0-0.2) Absolute Reticulocyte Count 0.127 x10^6/uL (0.020-0.120) Percent Reticulocyte Count 2.9 % (0.5-2.3) Immature Reticulocyte Fraction 0.61 (0.20-0.60) Sodium Level 139 mmol/L (136-145) Potassium Level 3.7 mmol/L (3.5-5.1) Chloride Level 102 mmol/L (98-107) Carbon Dioxide Level 30 mmol/L (21-32) Anion Gap 7 (6-14) Blood Urea Nitrogen 5 mg/dL (8-26) Creatinine 1.3 mg/dL (0.7-1.3) Estimated GFR (Cockcroft-Gault) 63.6 Glucose Level 122 mg/dL (70-99) Calcium Level 7.9 mg/dL (8.5-10.1) Microbiology 02/16/20 Blood Culture - Preliminary, Resulted NO GROWTH AFTER 2 DAYS C.diff and enteric panel negative. Vitals/I & O Vital Sign - Last 24 Hours 02/18/20 02/18/20 02/18/20 02/18/20 14:37 14:55 15:11 19:00 Temp 97.4 97.9 97.4 97.9 Pulse 89 76 72 81 Resp 20 16 16 18 B/P (MAP) 101/50 100/58 102/59 102/63 (76) Pulse Ox 100 100 96 100 O2 Delivery Nasal Cannula Room Air Room Air O2 Flow Rate 3 02/18/20 02/18/20 02/19/20 02/19/20 20:00 22:49 03:00 07:00 Temp 97.9 97.8 98.8 97.9 97.8 98.8 Pulse 80 84 83 Resp 18 18 16 B/P (MAP) 110/64 (79) 115/68 (84) 101/59 (73) Pulse Ox 100 100 98 O2 Delivery Room Air Room Air Room Air Room Air 02/19/20 02/19/20 07:45 11:00 Temp 97.9 97.9 Pulse 89 Resp 16 B/P (MAP) 106/65 (79) Pulse Ox 99 O2 Delivery Room Air Room Air Assessment Colitis, could be UC. Eosinophilia the sticky point. Concern for possible parasitic infestation which would be contraindication to steroids. Have on mesalamine currently. Plan of Care Note Continue mesalamine. Await biopsies, stool studies for O and P. Justicifation of Admission Dx: Justifications for Admission: Justification of Admission Dx: Yes SARAH DOHERTY MD Feb 19, 2020 13:21
[2020-02-19 15:00] VITALS: BP 89/50
[2020-02-19 19:00] VITALS: BP 96/53
[2020-02-19 22:57] VITALS: BP 103/57
[2020-02-20 03:00] VITALS: BP 100/59
[2020-02-20] MEDS: PANTOPRAZOLE IV PUSH 40 MG VIAL. IVP SCH (06:34)
[2020-02-20 07:00] VITALS: BP 100/54
[2020-02-20 07:40] LABS: BASO # 0.1 x10^3/uL (0.0-0.2); BASO % 1 % (0-3); EOS # 1.7 x10^3/uL (0.0-0.7); EOS % 11 % (0-3); HEMOGLOBIN 9.2 g/dL (13.0-17.5); LYMPH # 1.8 x10^3/uL (1.0-4.8); LYMPH % 12 % (24-48); MEAN CORPUSCULAR HEMOGLOBIN 23 pg (25-35); MEAN CORPUSCULAR HGB CONC 32 g/dL (31-37); MEAN CORPUSCULAR VOLUME 73 fL (79-100); MONO # 1.5 x10^3/uL (0.0-1.1); MONO % 10 % (0-9); NEUT # 9.6 x10^3/uL (1.8-7.7); NEUT % 66 % (31-73); PLATELET COUNT 475 x10^3/uL (140-400); RED BLOOD COUNT 3.99 x10^6/uL (4.30-5.70); RED CELL DISTRIBUTION WIDTH 22.8 % (11.5-14.5); WHITE BLOOD COUNT 14.7 x10^3/uL (4.0-11.0)
[2020-02-20 07:59] LABS: ALBUMIN 2.2 g/dL (3.4-5.0); ALBUMIN/GLOBULIN RATIO 0.6 (1.0-1.7); CALCIUM 8.1 mg/dL (8.5-10.1); CREATININE 1.2 mg/dL (0.7-1.3); GFR 69.7; POTASSIUM 3.1 mmol/L (3.5-5.1); TOTAL BILIRUBIN 0.2 mg/dL (0.2-1.0); TOTAL PROTEIN 6.1 g/dL (6.4-8.2)
[2020-02-20] MEDS: MESALAMINE 400 MG CAP.DRTAB. PO SCH ×2 (08:21→12:36)
[2020-02-20] MEDS: IV NORMAL SALINE 1000ML BAG 1,000 ML IV SCH (09:30)
[2020-02-20] MEDS: CIPROFLOXACIN 400MG PREMIX 200 ML IV SCH (09:34)
[2020-02-20] MEDS ORDERED: METR500T PO (10:13)
[2020-02-20] MEDS ORDERED: CIPR500T94 PO (10:13)
[2020-02-20] MEDS ORDERED: POTASSIUM CHLORIDE 20 MEQ TABLET.ER. PO ONE (10:15)
[2020-02-20] MEDS ORDERED: MESA400C2 PO (10:22)
[2020-02-20 10:42] VITALS: BP 94/51
--- NOTE | 2020-02-20 13:01 | PDOC ---
G I PROGRESS NOTE Subjective Says feels good and denies blood in stool. Objective Got ivermectin yesterday. Physical Exam Lungs clear. RRR Abdomen soft, not tender nor distended. Review of Relevant I have reviewed the following items edu (where applicable) has been applied. Labs Laboratory Tests Test 02/20/20 06:10 02/20/20 06:40 Sodium Level 141 mmol/L (136-145) Potassium Level 3.1 mmol/L (3.5-5.1) Chloride Level 107 mmol/L (98-107) Carbon Dioxide Level 27 mmol/L (21-32) Anion Gap 7 (6-14) Blood Urea Nitrogen 4 mg/dL (8-26) Creatinine 1.2 mg/dL (0.7-1.3) Estimated GFR (Cockcroft-Gault) 69.7 BUN/Creatinine Ratio 3 (6-20) Glucose Level 83 mg/dL (70-99) Calcium Level 8.1 mg/dL (8.5-10.1) Total Bilirubin 0.2 mg/dL (0.2-1.0) Aspartate Amino Transf (AST/SGOT) 17 U/L (15-37) Alanine Aminotransferase (ALT/SGPT) 18 U/L (16-63) Alkaline Phosphatase 60 U/L (46-116) Total Protein 6.1 g/dL (6.4-8.2) Albumin 2.2 g/dL (3.4-5.0) Albumin/Globulin Ratio 0.6 (1.0-1.7) White Blood Count 14.7 x10^3/uL (4.0-11.0) Red Blood Count 3.99 x10^6/uL (4.30-5.70) Hemoglobin 9.2 g/dL (13.0-17.5) Hematocrit 29.0 % (39.0-53.0) Mean Corpuscular Volume 73 fL (79-100) Mean Corpuscular Hemoglobin 23 pg (25-35) Mean Corpuscular Hemoglobin Concent 32 g/dL (31-37) Red Cell Distribution Width 22.8 % (11.5-14.5) Platelet Count 475 x10^3/uL (140-400) Neutrophils (%) (Auto) 66 % (31-73) Lymphocytes (%) (Auto) 12 % (24-48) Monocytes (%) (Auto) 10 % (0-9) Eosinophils (%) (Auto) 11 % (0-3) Basophils (%) (Auto) 1 % (0-3) Neutrophils # (Auto) 9.6 x10^3/uL (1.8-7.7) Lymphocytes # (Auto) 1.8 x10^3/uL (1.0-4.8) Monocytes # (Auto) 1.5 x10^3/uL (0.0-1.1) Eosinophils # (Auto) 1.7 x10^3/uL (0.0-0.7) Basophils # (Auto) 0.1 x10^3/uL (0.0-0.2) Laboratory Tests Test 02/20/20 06:10 02/20/20 06:40 Sodium Level 141 mmol/L (136-145) Potassium Level 3.1 mmol/L (3.5-5.1) Chloride Level 107 mmol/L (98-107) Carbon Dioxide Level 27 mmol/L (21-32) Anion Gap 7 (6-14) Blood Urea Nitrogen 4 mg/dL (8-26) Creatinine 1.2 mg/dL (0.7-1.3) Estimated GFR (Cockcroft-Gault) 69.7 BUN/Creatinine Ratio 3 (6-20) Glucose Level 83 mg/dL (70-99) Calcium Level 8.1 mg/dL (8.5-10.1) Total Bilirubin 0.2 mg/dL (0.2-1.0) Aspartate Amino Transf (AST/SGOT) 17 U/L (15-37) Alanine Aminotransferase (ALT/SGPT) 18 U/L (16-63) Alkaline Phosphatase 60 U/L (46-116) Total Protein 6.1 g/dL (6.4-8.2) Albumin 2.2 g/dL (3.4-5.0) Albumin/Globulin Ratio 0.6 (1.0-1.7) White Blood Count 14.7 x10^3/uL (4.0-11.0) Red Blood Count 3.99 x10^6/uL (4.30-5.70) Hemoglobin 9.2 g/dL (13.0-17.5) Hematocrit 29.0 % (39.0-53.0) Mean Corpuscular Volume 73 fL (79-100) Mean Corpuscular Hemoglobin 23 pg (25-35) Mean Corpuscular Hemoglobin Concent 32 g/dL (31-37) Red Cell Distribution Width 22.8 % (11.5-14.5) Platelet Count 475 x10^3/uL (140-400) Neutrophils (%) (Auto) 66 % (31-73) Lymphocytes (%) (Auto) 12 % (24-48) Monocytes (%) (Auto) 10 % (0-9) Eosinophils (%) (Auto) 11 % (0-3) Basophils (%) (Auto) 1 % (0-3) Neutrophils # (Auto) 9.6 x10^3/uL (1.8-7.7) Lymphocytes # (Auto) 1.8 x10^3/uL (1.0-4.8) Monocytes # (Auto) 1.5 x10^3/uL (0.0-1.1) Eosinophils # (Auto) 1.7 x10^3/uL (0.0-0.7) Basophils # (Auto) 0.1 x10^3/uL (0.0-0.2) Microbiology 02/16/20 Blood Culture - Preliminary, Resulted NO GROWTH AFTER 3 DAYS Hemoglobin stable. Path pending. Vitals/I & O Vital Sign - Last 24 Hours 02/19/20 02/19/20 02/19/20 02/19/20 15:00 19:00 20:00 22:57 Temp 98.5 98.4 98.8 98.5 98.4 98.8 Pulse 76 77 82 Resp 16 20 18 B/P (MAP) 89/50 (63) 96/53 (67) 103/57 (72) Pulse Ox 96 96 98 O2 Delivery Room Air Room Air Room Air Room Air 02/20/20 02/20/20 02/20/20 02/20/20 03:00 07:00 07:55 10:42 Temp 98.4 99.3 97.8 98.4 99.3 97.8 Pulse 73 74 73 Resp 18 18 18 B/P (MAP) 100/59 (73) 100/54 (69) 94/51 (65) Pulse Ox 98 98 96 O2 Delivery Room Air Room Air Room Air Room Air Intake and Output 02/19/20 02/19/20 02/20/20 15:00 23:00 07:00 Intake Total 340 ml Balance 340 ml Assessment Colitis, UC? Other? Not typical enteric or C.diff. Plan of Care Note Continue mesalamine. Reluctant to give steroids until path says no worm. Discussed with Dr. Barrios; may go home and f/u re: path. OK with me. Keep on mesalamine. Justicifation of Admission Dx: Justifications for Admission: Justification of Admission Dx: Yes SARAH DOHERTY MD Feb 20, 2020 13:01
--- NOTE | 2020-02-20 14:12 | NUR ---
Discharge Note: Patient was discharged home with self care. Patients IV was discontinued without any complications per [facility]. Patients at the bedside at the time of discharge education. Patient was given discharge summary/instructions, follow-ups, prescription and educational material in patients primary language. Patient did not have any further questions or concerns. Patient was taken down to the main entrance via wheelchair with all personal belongings, accompanied by [facility], where his was waiting for him to take him home.
--- NOTE | 2020-02-20 20:23 | PDOC ---
Provider Note Date of Service: DATE: 02/20/20 TIME: 20:23 Provider Note Discharge summary dictated.#[id number]. Justifications for Admission Other Justification FADI BOWEN MD Feb 20, 2020 20:23
--- NOTE | 2020-02-20 20:49 | DS ---
DATE OF DISCHARGE: 02/20/2020 REASON FOR ADMISSION TO THE HOSPITAL: Severe anemia, abdominal pain with diarrhea, possible colitis. CONSULTATIONS: Dr. Boucher, GI; and Dr. Wiseman, Hematology. PROCEDURES DONE: CT scan of the abdomen and pelvis; CT chest; blood transfusion; iron transfusion; EGD and colonoscopy. HOSPITAL COURSE: The patient is a 34-year-old male. The patient was complaining of abdominal pain, diarrhea and weakness. The patient had labs drawn outpatient, showed hemoglobin 7.2 and white count 16. The patient had a normal CBC one year ago. The patient was admitted to the hospital for further workup. The patient was having abdominal pain. CT scan of the abdomen and pelvis showed colitis. The patient was seen by GI. EGD was unremarkable. Colonoscopy showed inflammation in the colon, biopsy was done. There was a questionable parasite infection. The patient was seen by Hematology because of low hemoglobin, was given 2 units of transfusion, went up to 9. The patient also had a low iron, was given iron infusion. The patient had a CT chest, was unremarkable. Because of questionable parasite infection, the patient was given a dose of ivermectin 12 mg daily for 2 days for possible parasite infection. The patient was feeling better. He was discharged home, awaiting pathology report. Potassium was low at the time of discharge, was replaced. We will check labs in a couple of days. FINAL DIAGNOSES: 1. Possible abdominal pain with diarrhea secondary to possible colitis, pancolitis, rule out inflammatory bowel disease. 2. Severe anemia, requiring transfusion. 3. Iron-deficiency anemia secondary to probably chronic deficiency intake, was given IV iron, and follow up in the office. Discharged on p.o. Cipro and Flagyl for 1 week and also mesalamine 800 mg 4 times daily. Follow up with GI. FADI BOWEN MD DR: VENECIA/tahi JOB#: [id number] / [id number]
== END 2020-02-20 14:17 | disposition home or self-care (01) | DRG 392 ==
LOC: 5 NORTH 14:53
PROVIDERS: ADMIT Internal Medicine; ATTEND Internal Medicine
PROC: 30233N1 Transfusion of Nonautologous Red Blood Cells into Peripheral Vein, Percutaneous Approach (ICD-10-PCS; principal; 2020-02-17)
PROC: 0DB68ZX Excision of Stomach, Via Natural or Artificial Opening Endoscopic, Diagnostic (ICD-10-PCS; 2020-02-18)
PROC: 0DBK8ZX Excision of Ascending Colon, Via Natural or Artificial Opening Endoscopic, Diagnostic (ICD-10-PCS; 2020-02-18)
PROC: 0DBL8ZX Excision of Transverse Colon, Via Natural or Artificial Opening Endoscopic, Diagnostic (ICD-10-PCS; 2020-02-18)
PROC: 0DBP8ZX Excision of Rectum, Via Natural or Artificial Opening Endoscopic, Diagnostic (ICD-10-PCS; 2020-02-18)
PROC: 0DBH8ZX Excision of Cecum, Via Natural or Artificial Opening Endoscopic, Diagnostic (ICD-10-PCS; 2020-02-18)
PROC: 0DB98ZX Excision of Duodenum, Via Natural or Artificial Opening Endoscopic, Diagnostic (ICD-10-PCS; 2020-02-18 14:00)
DX: K52.9 Noninfective gastroenteritis and colitis, unspecified (principal); N17.9 Acute kidney failure, unspecified; E87.1 Hypo-osmolality and hyponatremia; K51.00 Ulcerative (chronic) pancolitis without complications; D50.9 Iron deficiency anemia, unspecified; E87.6 Hypokalemia; K21.9 Gastro-esophageal reflux disease without esophagitis; D72.10 Eosinophilia, unspecified; R59.0 Localized enlarged lymph nodes; Z20.828 Contact with and (suspected) exposure to other viral communicable diseases; D47.3 Essential (hemorrhagic) thrombocythemia; R63.4 Abnormal weight loss; Z68.24 Body mass index [BMI] 24.0-24.9, adult
CPT/HCPCS: 36415; 43239; 45380; 71250; 74177; 80048; 80053; 82607; 82728; 83540; 83550; 85007; 85025; 85045; 86850; 86900; 86901; 86920; 87040; 87177; 87209; 87426; 87493; 87505; 90471; 90686; C9113; J0744; J1756; J2704; J3490; J7030; J7050; J7120; P9016; Q9966; Q9967; U0003; G0378